=== PATIENT | female | born 1990 | race Caucasian/White ===

== ENCOUNTER 2021-12-30 02:46 | Emergency (ER) | payer BC ==
[2021-12-30 03:55] LABS: BHCG - Serum Negative (NEGATIVE)
[2021-12-30] MEDS ORDERED: Ondansetron ODT 4 MG TAB ONE ×2 (03:55→04:06)
[2021-12-30 03:56] LABS: Pregs Control Background? CLEAR/WHITE (CLR/WHITE); Pregs Control Bar Appear? YES (CONTROL BAR)
[2021-12-30 03:57] LABS: Bacteria/HPF 1+ HPF (None Seen); Bilirubin Negative (Negative); Blood, Urine Negative (Negative); Calcium Oxalate Crystals 1+ HPF (None Seen); Clarity Turbid (Clear); Glucose, Urine (Dipstick) 500 mg/dL (Negative); Ketone, Urine Negative (Negative); Leukocyte 500 Leu/uL (Negative); Nitrite Negative (Negative); Protein, Urine (Dipstick) 20 mg/dL (Neg-Trace); Specific Gravity, Urine 1.031 (1.002-1.036); WBC/HPF Greater than 50 HPF (0-3); pH, Urine 5.5 (5.0-9.0)
[2021-12-30 03:58] LABS: RBC/HPF 0-3 HPF (0-3)
[2021-12-30 04:00] LABS: #Eosinphils 0.3 thou/uL (0.0-0.7); #Lymphocytes 2.6 thou/uL (1.20-3.40); #Monocytes 0.4 thou/uL (0.11-0.59); #Neutrophils 7.2 thou/uL (1.40-6.50); %Basophils 0.4 % (0.0-1.0); %Eosinophils 2.9 % (0.0-10.0); %Lymphocytes 24.5 % (21.0-51.0); %Neutrophils 68.2 % (42.0-75.0); Hemoglobin 14.1 g/dL (12.0-16.0); Mean Corpuscular HGB CONC 32.6 g/dL (32.0-36.0); Mean Corpuscular Hemoglobin 27.8 pg (27.0-31.0); Mean Corpuscular Volume 85.2 fL (78.0-98.0); Mean Platelet Volume 6.1 fL (7.4-10.4); Platelet Count 405 thou/uL (130-400); RBC Distribution Width 14.5 % (11.5-14.5); Red Blood Cell (RBC) Count 5.09 mill/uL (4.20-5.40); White Blood Cell (WBC) Count 10.5 thou/uL (4.8-10.8)
[2021-12-30] MEDS ORDERED: Ketorolac Tromethamine 30 MG/ML VIAL ONE (04:05)
[2021-12-30 04:08] LABS: ALT (SGPT) 35 U/L (8-55); AST (SGOT) 26 U/L (5-34); Albumin 3.9 g/dL (3.5-5.0); Alkaline Phosphatase 119 U/L (40-110); Anion Gap 14 mmol/L (10-20); BUN (Urea Nitrogen) 10 mg/dL (7.0-18.7); Bilirubin, Total 0.5 mg/dL (0.2-1.2); Calc. Creatinine Clearance 0 mL/min (70-130); Calcium 9.1 mg/dL (7.8-10.44); Carbon Dioxide 25 mmol/L (22-29); Chloride 100 mmol/L (98-107); Estimated GFR 111; Globulin 3.7 g/dL (2.4-3.5); Glucose 283 mg/dL (70-105); Potassium 3.9 mmol/L (3.5-5.1); Protein, Total 7.6 g/dL (6.0-8.3); Sodium 135 mmol/L (136-145)
[2021-12-30] MEDS ORDERED: cefTRIAXone\\ROCEPHIN 1 GM VIAL ONE (05:19)
[2021-12-30] MEDS ORDERED: Acetaminophen 500 MG TAB ONE (05:28)
[2021-12-30] MEDS ORDERED: HYDROcodone/Acetaminophen 5/325 mg Tablet ONE (05:30)
== END 2021-12-30 06:10 | disposition home or self-care (01) ==
LOC: EDBD 02:46 → ERS 02:46
DX: N39.0 Urinary tract infection, site not specified (principal); R11.2 Nausea with vomiting, unspecified; Z87.442 Personal history of urinary calculi
CPT/HCPCS: 36415; 74176; 80053; 81003; 81015; 84703; 85025; 87077; 87086; 96361; 96365; 96375; J0696; J1885; Q0162